=== PATIENT | female | born 1980 | race Caucasian/White ===

== ENCOUNTER 2017-10-17 17:02 | Emergency (ER) | payer OTHER ==
[2017-10-17 17:09] VITALS: BP 130/92
[2017-10-17] MEDS ORDERED: DEXAMETHASONE 10 MG/ML VIAL PO STA (17:51)
--- NOTE | 2017-10-17 17:58 | ED Physician Documentation ---
PD HPI TRUNK INJURY - Stated complaint Stated Complaint: LEFT UPPER RIB PX - Chief complaint Chief Complaint: General - History obtained from History obtained from: Patient - History of Present Illness Location: Left chest Type of injury: Blunt / blow Timing - onset: How many weeks ago (1) Timing - duration: Weeks (1) Timing - details: Gradual onset, Still present Quality: Pain, Sharp Improved by: Rest, Immobilization Worsened by: Moving, Palpating Associated symtptoms: No: Weakness, Numbness, Tingling Contributing factors: No: Anticoagulated Where injury occured: [place] Similar symptoms before: Has not had sx before Recently seen: Not recently seen - Additional information Additional information: 37-year-old previously well female was playing kickball and strained her leg and was piggybacked off of the field. She states that while she was being piggybacked she felt sharp pain under her left breast she felt that this was just her bra underwire. She has had increasing pain over the past several days and the pain is now persistent with each breath and if she moves around. She is breathing more shallow than usual. She has been able to get adequate pain relief with the use of ibuprofen and tylenol. Review of Systems Constitutional: denies: Fever Eyes: denies: Decreased vision Ears: denies: Ear pain Nose: denies: Congestion Throat: denies: Sore throat Cardiac: reports: Chest pain / pressure. denies: Palpitations Respiratory: denies: Dyspnea, Cough GI: denies: Abdominal Pain, Nausea : denies: Dysuria, Frequency PD PAST MEDICAL HISTORY - Past Medical History Past Medical History: No - Past Surgical History Past Surgical History: No - Present Medications Home Medications: Ambulatory Orders Medication Instructions Recorded Confirmed Cholecalciferol (Vitamin D3) 10/17/17 [Vitamin D3] Lactobacillus Acidophilus 10/17/17 [Probiotic Acidophilus] - Allergies Allergies/Adverse Reactions: Allergies Allergy/AdvReac Type Severity Reaction Status Date / Time angie Allergy Anaphylaxis Verified 10/17/17 17:10 - Social History Does the pt smoke?: No Smoking Status: Never smoker Does the pt drink ETOH?: Yes Does the pt have substance abuse?: No - Immunizations Immunizations are current?: Yes - POLST Patient has POLST: No PD ED PE NORMAL - Vitals Vital signs reviewed: Yes (hypertensive) - General General: Alert and oriented X 3, No acute distress, Well developed/nourished - HEENT HEENT: Atraumatic, PERRL, EOMI - Neck Neck: Supple, no meningeal sign - Cardiac Cardiac: RRR, No murmur - Respiratory Respiratory: No respiratory distress, Clear bilaterally, Other (There is point tendeness to the left lateral chest wall under the left breast) - Abdomen Abdomen: Soft, Non tender - Back Back: No CVA TTP, No spinal TTP - Derm Derm: Normal color, Warm and dry, No rash - Extremities Extremities: No deformity, No edema - Neuro Neuro: No motor deficit, No sensory deficit Eye Opening: Spontaneous Motor: Obeys Commands Verbal: Oriented GCS Score: 15 - Psych Psych: Normal mood, Normal affect Results - Vitals Vitals: Vital Signs - 24 hr 10/17/17 17:05 Temperature 36.6 C Heart Rate 71 Respiratory 17 Rate Blood Pressure 130/92 H O2 Saturation 97 Oxygen O2 Source Room air - Rads (name of study) ribs with pa chest Radiology: Prelim report reviewed, EMP read indepedently, See rad report PD MEDICAL DECISION MAKING - ED course Complexity details: reviewed results, re-evaluated patient, considered differential, d/w patient ED course: 37-year-old female with a chest wall contusion without evidence of fracture of rib. She has persistent pain she is administered dexamethasone 10 mg orally. She appears to have adequate pain control at home with use of ibuprofen and Tylenol. Departure - Departure Disposition: 01 Home, Self Care Clinical Impression: Contusion of left chest wall Qualifiers: Encounter type: initial encounter Qualified Code(s): S20.212A - Contusion of left front wall of thorax, initial encounter Condition: Stable Instructions: ED Contusion Rib Follow-Up: TISHA Barrow [Provider Group] Discharge Date/Time: 10/17/17 18:49
[2017-10-17] MEDS ORDERED: CHERRY SYRUP 10 ML UDC PO ONE (18:21)
--- NOTE | 2017-10-17 18:37 | XRAY Preliminary Report ---
Exam: XR RIBS W/PA CHEST LT IMPRESSION: Normal chest and rib radiography. [facility] SITE ID: [id number]
--- NOTE | 2017-10-17 18:37 | XRAY Report ---
EXAM: LEFT RIB RADIOGRAPHY EXAM DATE: 10/17/2017 06:11 PM. CLINICAL HISTORY: Chest wall contusion left. COMPARISON: None. TECHNIQUE: 1 view of the chest and 2 views of the ribs. FINDINGS: Bones: Normal. No fracture or bone lesion. Lungs: Clear. No effusion or pneumothorax. Mediastinum: Heart and mediastinal contours are unremarkable. Upper lobe vessels not distended. Other: None. IMPRESSION: Normal chest and rib radiography. [facility] Referring Provider Line: [phone] SITE ID: [id number]
== END 2017-10-17 18:49 | disposition home or self-care (01) ==
LOC: ED 17:02
DX: S20.212A Contusion of left front wall of thorax, initial encounter (principal); X58.XXXA Exposure to other specified factors, initial encounter; Y93.6A Activity, physical games generally associated with school recess, summer camp and children
CPT/HCPCS: 71101; 99282; 99283; A9270

== ENCOUNTER 2019-05-31 12:56 | Emergency (ER) | payer OTHER ==
[2019-05-31] MEDS ORDERED: KETOROLAC 60 MG/2 ML VIAL IM STA (14:29)
--- NOTE | 2019-05-31 14:35 | ED Physician Documentation ---
PD HPI BACK PAIN - Stated complaint Stated Complaint: BACK PX - Chief complaint Chief Complaint: Back Pain - History obtained from History obtained from: Patient - History of Present Illness Timing - onset: How many hours ago (6) Timing - duration: Hours (6) Timing - details: Abrupt onset Pain level max: 7 Pain level now: 7 Location: Lower, Right, Left Quality: Pain, Spasm Associated symptoms: No: Fever, Weakness, Numbness, Incontinent of urine, Unable to urinate, Hematuria, Incontinent of stool Improves with: Rest, Ice Worsened by: Movement, Lifting Contributing factors: No: Lifting, Twisting, Trauma, Anticoagulated, Cancer, IVDA, Out of meds Recently seen: Not recently seen - Additional information Additional information: Patient has stage IV breast cancer, underwent chemotherapy in February and is currently undergoing radiation. Review of Systems Constitutional: denies: Fever, Chills Respiratory: denies: Cough GI: denies: Nausea, Vomiting : denies: Dysuria, Unable to Void, Incontinent, Hematuria, Now EGA Skin: denies: Rash Musculoskeletal: denies: Neck pain Neurologic: denies: Focal weakness, Numbness PD PAST MEDICAL HISTORY - Past Medical History Past Medical History: No - Past Surgical History Past Surgical History: No - Present Medications Home Medications: Ambulatory Orders Medication Instructions Recorded Confirmed Cholecalciferol (Vitamin D3) 10/17/17 [Vitamin D3] Lactobacillus Acidophilus 10/17/17 [Probiotic Acidophilus] Meloxicam [Mobic] 15 mg PO DAILY PRN #20 tablet 05/31/19 diazePAM [Valium] 5 - 10 mg PO TID PRN #15 tablet 05/31/19 - Allergies Allergies/Adverse Reactions: Allergies Allergy/AdvReac Type Severity Reaction Status Date / Time angie Allergy Anaphylaxis Verified 05/31/19 13:01 - Social History Does the pt smoke?: No Smoking Status: Never smoker Does the pt drink ETOH?: Yes Does the pt have substance abuse?: No - Immunizations Immunizations are current?: Yes - POLST Patient has POLST: No PD ED PE NORMAL - Vitals Vital signs reviewed: Yes - General General: Alert and oriented X 3, No acute distress, Well developed/nourished - HEENT HEENT: Moist mucous membranes - Neck Neck: Supple, no meningeal sign, No bony TTP - Cardiac Cardiac: RRR, Strong equal pulses - Respiratory Respiratory: No respiratory distress, Clear bilaterally - Abdomen Abdomen: Soft, Non tender, Non distended - Back Back: Other (Midline tenderness to palpation along the lumbar spine. Mild paraspinal spasm bilaterally.) - Derm Derm: Warm and dry - Extremities Extremities: Other (Normal bilateral lower extremity patellar and ankle jerk reflexes. Normal great toe extension bilaterally. no saddle anesthesia) - Neuro Neuro: Alert and oriented X 3, No motor deficit, No sensory deficit - Psych Psych: Normal mood, Normal affect Results - Vitals Vitals: Oxygen O2 Source Room air - Rads (name of study) Lumbar spine x-ray Radiology: Prelim report reviewed, EMP read contemporaneously, See rad report (No acute abnormality) PD MEDICAL DECISION MAKING - ED course Complexity details: reviewed results, re-evaluated patient, considered differential (No cauda equina, no spinal epidural abscess, no fracture, no aortic dissection or evidence of aneursym rupture), d/w patient ED course: Patient with low back pain. No acute findings on x-ray. No evidence of cauda equina, epidural abscess. Feels better after medication here. Will place on meloxicam and Valium for home. Patient counseled regarding signs and symptoms for which I believe and urgent re-evaluation would be necessary. Patient with good understanding of and agreement to plan and is comfortable going home at this time This document was made in part using voice recognition software. While efforts are made to proofread this document, sound alike and grammatical errors may occur. Ambulating well in the emergency department Departure - Departure Disposition: 01 Home, Self Care Clinical Impression: Low back strain Qualifiers: Encounter type: initial encounter Qualified Code(s): S39.012A - Strain of muscle, fascia and tendon of lower back, initial encounter Condition: Good Instructions: ED Low Back Pain Injury Follow-Up: Lino Oscar MD [Primary Care Provider] - Within 1 week Prescriptions: diazePAM [Valium] 5 - 10 mg PO TID PRN #15 tablet PRN Reason: Spasms Meloxicam [Mobic] 15 mg PO DAILY PRN #20 tablet PRN Reason: pain Comments: Your x-ray does not show any acute abnormalities today. Use the medications as prescribed. Return if you worsen. Do not drive or operate heavy machinery while taking valium Discharge Date/Time: 05/31/19 16:38
[2019-05-31 15:35] VITALS: BP 125/81
--- NOTE | 2019-05-31 16:06 | XRAY Report ---
Reason: midline back pain, h/o breast CA Procedure Date: 05/31/2019 Accession Number: [id number] / [id number] Procedure: XR - Lumbar Spine 2 View CPT Code: Final Report FULL RESULT: EXAM: LUMBOSACRAL SPINE RADIOGRAPHY EXAM DATE: 05/31/2019 02:52 PM. CLINICAL HISTORY: Midline back pain, history of breast cancer. COMPARISONS: None. TECHNIQUE: 2 views. FINDINGS: Alignment: Mild to moderate levoscoliosis at T12-L1 measures 14 degrees. No spondylolisthesis. Bones: Five [id number] lumbar vertebral bodies are present. No acute fracture or bone lesion present. Disks: The lumbar disk spaces appear well preserved without significant osteophytes. Facets: No degenerative changes. Sacroiliac Joints: Unremarkable. Soft Tissues: Normal. The visualized bowel gas pattern is normal. IMPRESSION: 1. Mild to moderate thoracolumbar levoscoliosis. 2. No fracture or bone lesion evident. [facility]
== END 2019-05-31 16:38 | disposition home or self-care (01) ==
LOC: ED 12:56
DX: S39.012A Strain of muscle, fascia and tendon of lower back, initial encounter (principal); X58.XXXA Exposure to other specified factors, initial encounter; Y93.E1 Activity, personal bathing and showering; Y92.002 Bathroom of unspecified non-institutional (private) residence as the place of occurrence of the external cause
CPT/HCPCS: 72100; 96372; 99283; 99284